=== PATIENT | female | born 1955 | race Caucasian/White ===

== ENCOUNTER 2023-09-07 16:11 | Outpatient (REF) | payer MEDICARE, BC, SELFPAY ==
[2023-09-07 21:24] LABS: Abs Immature Grans 0.01 10^3/uL (0.0-0.06); Absolute Basophil Count 0.09 10^3/uL (0.0-0.2); Absolute Eosinophil Count 0.21 10^3/uL (0.0-0.7); Absolute Lymphocyte Count 2.53 10^3/uL (1.2-3.4); Absolute Monocyte Count 0.69 10^3/uL (0.1-0.8); Absolute Neutrophil Count 3.71 10^3/uL (1.2-6.7); Basophils % 1.2; Eosinophils % 2.9; HCT 36.5 % (36.0-46.0); HGB 11.8 g/dL (11.2-15.7); Immature Grans % 0.1; Lymphocytes % 34.9; MCH 29.2 pg (27.0-33.0); MCHC 32.3 % (32.0-36.0); MCV 90 fL (80-95); MPV 9.6 fL (8.0-11.0); Monocytes % 9.5; Neutrophils % 51.4; Platelet Count 309 10^3/uL (130-400); RBC 4.04 10^6/uL (3.93-5.22); RDW 12.2 % (11.7-14.6); RDW-SD 40.2 fL; WBC 7.24 10^3/uL (4.4-10.8)
[2023-09-07 21:42] LABS: BUN 15 mg/dL (7-18); CREATININE 0.7 mg/dL (0.55-1.02); Calculated LDL 150 mg/dL (<100); Chloride 105 mmol/L (98-107); Cholesterol 269 mg/dL (<200); Estimated GFR 95.32 (mL/min/1.73m2); Glucose 99 mg/dL (74-106); HDL Cholesterol 97 mg/dL (40-60); Potassium 3.7 mmol/L (3.5-5.1); Sodium 141 mmol/L (136-145); Triglyceride 114 mg/dL (<150)
== END 2023-09-07 16:12 | disposition home or self-care (01) ==
LOC: NCHCN 16:11
PROVIDERS: Visit Provider Internal Medicine
DX: G57.62 Lesion of plantar nerve, left lower limb (principal); R79.89 Other specified abnormal findings of blood chemistry; Z01.818 Encounter for other preprocedural examination; Z01.812 Encounter for preprocedural laboratory examination
CPT/HCPCS: 80048; 80061; 85025

== ENCOUNTER 2025-05-24 09:38 | Outpatient (REF) | payer MEDICARE, BC, SELFPAY ==
[2025-05-24 15:27] LABS: ALT 40 U/L (14-59); AST 27 U/L (15-37); Albumin 3.7 g/dL (3.4-5.0); Alkaline Phosphatase 76 U/L (46-116); Anion Gap 6.5 mmol/L (3-11); BUN 17 mg/dL (7-18); Bilirubin, Total 0.7 mg/dL (0.2-1.0); CO2 28.5 mmol/L (21.0-32.0); Calcium 9.2 mg/dL (8.5-10.1); Calculated LDL 162 mg/dL (<100); Chloride 102 mmol/L (98-107); Cholesterol 255 mg/dL (<200); Estimated GFR 94.15 (mL/min/1.73m2); Glucose 87 mg/dL (74-106); HDL Cholesterol 82 mg/dL (>or=50); Potassium 4.0 mmol/L (3.5-5.1); Sodium 137 mmol/L (136-145); Total Protein 7.2 g/dL (6.4-8.2); Triglyceride 55 mg/dL (<150)
== END 2025-05-24 09:39 | disposition home or self-care (01) ==
LOC: NCHCN 09:38
PROVIDERS: PCP Internal Medicine; Visit Provider Internal Medicine
DX: E78.5 Hyperlipidemia, unspecified (principal)
CPT/HCPCS: 80053; 80061

== ENCOUNTER 2025-05-31 18:45 | Outpatient (REF) | payer MEDICARE, BC, SELFPAY ==
[2025-05-31 20:48] LABS: HCT 37.8 % (36.0-46.0); HGB 12.0 g/dL (11.2-15.7); MCH 29.0 pg (27.0-33.0); MCHC 31.7 % (32.0-36.0); MCV 91 fL (80-95); MPV 9.5 fL (8.0-11.0); Platelet Count 331 10^3/uL (130-400); RBC 4.14 10^6/uL (3.93-5.22); RDW 12.2 % (11.7-14.6); RDW-SD 40.8 fL; WBC 6.35 10^3/uL (4.4-10.8)
[2025-05-31 21:24] LABS: TSH 0.75 uIU/mL (0.36-3.74); Vitamin D 25 Total 47 ng/mL (30-100)
== END 2025-05-31 18:46 | disposition home or self-care (01) ==
LOC: NCHCN 18:45
PROVIDERS: PCP Internal Medicine; Visit Provider Internal Medicine
DX: M81.0 Age-related osteoporosis without current pathological fracture (principal); R10.12 Left upper quadrant pain
CPT/HCPCS: 82306; 85027; 84443

== ENCOUNTER 2025-06-06 21:17 | Outpatient (REF) | payer MEDICARE, BC, SELFPAY ==
[2025-06-18 13:25] LABS: Helicobacter pylori Ag, Feces Negative (Negative)
== END 2025-06-06 21:18 | disposition home or self-care (01) ==
LOC: NCHCN 21:17
PROVIDERS: PCP Internal Medicine; Visit Provider Internal Medicine
DX: R10.12 Left upper quadrant pain (principal)
CPT/HCPCS: 87338